=== PATIENT | male | born 1960 ===

== ENCOUNTER 2016-10-25 00:41 | Inpatient (IN) | payer BC ==
[2016-10-25 01:53] LABS: BASO # 0.1 K/uL (0.0-0.2); BASO % 0.6 % (0.0-2.0); EOS # 0.1 K/uL (0.0-0.7); EOS % 1.2 % (0.0-4.0); HEMATOCRIT 48.3 % (35.0-51.0); LYMPH # 2.7 K/uL (1.0-4.3); LYMPH % 30.2 % (20.0-40.0); MEAN CELL VOLUME 90.4 fL (80.0-94.0); MEAN CORPUSCULAR HEMOGLOBIN 30.3 pg (27.0-31.0); MEAN CORPUSCULAR HGB CONC 33.5 g/dL (33.0-37.0); MEAN PLATELET VOLUME 7.8 fL (7.2-11.7); MONO # 0.6 K/uL (0.0-0.8); RED CELL DISTRIBUTION WIDTH 15.8 % (11.5-14.5); WHITE BLOOD COUNT 8.9 K/uL (4.8-10.8)
[2016-10-25 01:57] LABS: CHLORIDE 98 mmol/L (98-107); POTASSIUM 3.8 mmol/L (3.6-5.2); SODIUM 139 mmol/L (132-148)
[2016-10-25 01:59] LABS: ALB/GLOB RATIO 1.1 (1.0-2.1); ALKALINE PHOSPHATASE 98 U/L (38-126); AST/SGOT 57 U/L (17-59); BILIRUBIN,TOTAL 0.4 mg/dL (0.2-1.3); CARBON DIOXIDE 24 mmol/L (22-30); GFR AFRICAN-AMERICAN > 60; TOTAL PROTEIN 8.3 g/dL (6.3-8.3)
[2016-10-25 02:00] LABS: ALT/SGPT 60 U/L (21-72); BLOOD UREA NITROGEN 6 mg/dL (9-20); CALCIUM 8.6 mg/dl (8.6-10.4); GLUCOSE,RANDOM 104 mg/dL (75-110)
--- NOTE | 2016-10-25 02:05 | C.PDOC ---
History Of Present Illness <TateCarola Akil - Last Filed: 10/25/16 10:13> <Yuri Ware - Last Filed: 10/25/16 21:22> 56 year old patient presents to the ED requesting detox. Patient wants to detox from alcohol. He admits to drinking alcohol prior to arrival. Patient denies suicidal/homicidal ideation or any other complaints at this time. (Yuri Ware) <Tate,Carola Akil - Last Filed: 10/25/16 10:13> History Per: Patient History/Exam Limitations: intoxication Onset/Duration Of Symptoms: Other Current Symptoms Are (Timing): Still Present Suicide/Self Injury Attempted (Context): None Modifying Factor(s): Alcohol Severity: None Pain Scale Rating Of: 0 Recent travel outside of the [place]: No <Yuri Ware - Last Filed: 10/25/16 21:22> Time Seen by Provider: 10/25/16 01:22 Chief Complaint (Nursing): Substance Abuse Past Medical History Reviewed: Historical Data, Nursing Documentation, Vital Signs Family History: States: Unknown Family Hx - Social History Hx Alcohol Use: Yes Hx Substance Use: Yes - Immunization History Hx Tetanus Toxoid Vaccination: No Hx Influenza Vaccination: No Hx Pneumococcal Vaccination: No <Yuri Ware - Last Filed: 10/25/16 21:22> Vital Signs: Last Vital Signs Temp 98 F 10/25/16 19:59 Pulse 97 H 10/25/16 19:59 Resp 18 10/25/16 19:59 BP 127/85 10/25/16 19:59 Pulse Ox 98 10/25/16 19:59 - [facility] Procedures TETANUS TOXOID ADMINIST (04/30/15) Review Of Systems Except As Marked, All Systems Reviewed And Found Negative. Constitutional: Negative for: Fever Cardiovascular: Negative for: Chest Pain Gastrointestinal: Negative for: Vomiting Psych: Negative for: Suicidal ideation <Yuri Ware - Last Filed: 10/25/16 21:22> Physical Exam - Physical Exam Appears: Non-toxic, No Acute Distress, Other (EtOH on breath) Skin: Warm, Dry Head: Atraumatic, Normacephalic Neck: Normal ROM, Supple Chest: Symmetrical Cardiovascular: Rhythm Regular Respiratory: No Accessory Muscle Use Gastrointestinal/Abdominal: Soft, No Tenderness Back: Normal Inspection, No CVA Tenderness Extremity: Normal ROM Neurological/Psych: Oriented x3 Gait: Steady <Yuri Ware - Last Filed: 10/25/16 21:22> ED Course And Treatment - Laboratory Results Result Diagrams: 10/25/16 01:45 10/25/16 01:45 <Carola Ybarra - Last Filed: 10/25/16 10:13> - Laboratory Results Result Diagrams: 10/25/16 01:45 10/25/16 01:45 O2 Sat by Pulse Oximetry: 96 (RA) Pulse Ox Interpretation: Normal <Yuri Ware - Last Filed: 10/25/16 21:22> Medical Decision Making <Carola Ybarra - Last Filed: 10/25/16 10:13> <Yuri Ware - Last Filed: 10/25/16 21:22> Medical Decision Making: Plan: -Labs 400: pt pending sobriety prior to crisis eval 500: pt later c/o of epigastric abd pain. lipase added. neg. 700: pt endorsed to day shift, pending sobriety prior to crisis eval for detox. (Yuri Ware) Disposition <Carola Ybarra - Last Filed: 10/25/16 10:13> - Disposition Disposition Time: 07:00 <Yuri Ware - Last Filed: 10/25/16 21:22> - Disposition Disposition: HOME/ ROUTINE Condition: GOOD - Clinical Impression Clinical Impression: Alcohol abuse <Carola Ybarra - Last Filed: 10/25/16 10:13> - Scribe Statement The provider has reviewed the documentation as recorded by the Scribe <Yuri Ware - Last Filed: 10/25/16 21:22> - Scribe Statement Josselyn Vázquez (Yuri Ware) Provider Attestation: All medical record entries made by the Scribe were at my direction and personally dictated by me. I have reviewed the chart and agree that the record accurately reflects my personal performance of the history, physical exam, medical decision making, and the department course for this patient. I have also personally directed, reviewed, and agree with the discharge instructions and disposition. (Yuri Ware) Addendum <Carola Ybarra - Last Filed: 10/25/16 10:13> <Yuri Ware - Last Filed: 10/25/16 21:22> Addendum: 10/25/16 07:15 Patient sleeping comfortably, easily arousable. He is pending sobriety for crisis eval/admission. 10/25/16 08:45 Patient awake, states he is having epigastric abdominal pain, nausea. Ordered PO zofran, maalox and EKG. Patient pending sobriety, for detox bed. 10/25/16 10:13 Patient resting comfortably. He is medically cleared, has been accepted for alcohol detox admission by Dr. Chang. (Carola Ybarra)
[2016-10-25 02:25] LABS: URINE BILIRUBIN NEGATIVE (NEGATIVE); URINE COLOR Colorless (YELLOW); URINE GLUCOSE (UA) NORMAL (Normal); URINE KETONE NEGATIVE (NEGATIVE); URINE LEUKOCYTE ESTERASE NEG Leu/uL (Negative); URINE PROTEIN NEGATIVE (NEGATIVE); URINE UROBILINOGEN NORMAL mg/dL (0.2-1.0); WBC URINE < 1 /hpf (0-5)
[2016-10-25 02:51] LABS: ALCOHOL SERUM 341 mg/dl (0-10)
[2016-10-25 02:54] LABS: URINE BLOOD TRACE (NEGATIVE)
[2016-10-25] MEDS ORDERED: Alum-Mag Hydrox-Simethicone Susp (30 mL) PO STA (08:47)
[2016-10-25] MEDS ORDERED: Alum-Mag Hydrox-Simethicone Susp (30 mL) ONE (09:03)
[2016-10-25 10:29] VITALS: RESP 18
[2016-10-26] MEDS: Multiple Vitamins Tab PO SCH (09:05)
--- NOTE | 2016-10-26 12:06 | CARD ---
APPROVED REPORT EKG Measurement Heart [id number] MD [id number] <Conclusion> Normal sinus rhythm Normal ECG
--- NOTE | 2016-10-26 17:52 | PCM.PSYCH ---
Initial Psychiatric Evaluation - Initial Psychiatric Evaluation Type of Admission: Voluntary Legal Status: Capacity Chief Complaint (in patient's own words): Improvement with treatment for my alcohol use History of Present Illness and Precipitating Events: Patient is a 56 years old, , employed, male with history of alcohol and cocaine use was admitted for the treatment of alcohol withdrawal. Patient denied any psychiatric history. Reported he started drinking alcohol at 8 years of age, increased gradually. After age 20 years, he started drinking heavily. Was drinking up to 10 cans of beer, age of 24 ounces, daily. His last used of alcohol was 2 days ago. His longest period of abstinence was 9 months from September 2015 -September 2016. He relapsed on alcohol in September 2016 due to his mother's sickness. History of 2 detox and 2 rehabs in the past. Reported he was attending AA meetings in the past but had no sponsor. Cannabis: Started at 8 years of age. Increased gradually. Reported he was smoking half owns daily. Last used 2 days ago. Smokes one pack of cigarettes daily and is requesting for nicotine patch. Patient was born in [place], has high school graduation and is working. He is and has one grown up daughter. He lives with his . His height is 6 feet and weight is 260 pounds. Current Medications: Active Medications Generic Name Dose Route Start Last Admin Trade Name Ildefonsoq PRN Reason Stop Dose Admin Chlordiazepoxide 25 mg 10/25/16 11:10 10/26/16 09:05 Librium PO 25 mg Q4H PRN Administration Alcohol Withdrawal Chlordiazepoxide 25 mg 10/25/16 12:00 10/26/16 13:30 Librium PO 10/29/16 11:59 25 mg TID PATRICA Administration Taper Clonidine HCl 0.1 mg 10/25/16 11:10 10/25/16 16:35 Catapres PO 0.1 mg Q4H PRN Administration Symptoms of alcohol withdrawl Folic Acid 1 mg 10/26/16 10:00 10/26/16 09:05 Folic Acid PO 1 mg DAILY PATRICA Administration Multivitamins 1 tab 10/26/16 10:00 10/26/16 09:05 Hexavitamin PO 1 tab DAILY PATRICA Administration Nicotine 1 patch 10/25/16 12:30 10/26/16 09:04 Nicoderm Cq TD 1 patch DAILY PATRICA Administration Thiamine HCl 100 mg 10/26/16 10:00 10/26/16 09:05 Vitamin B1 Tab PO 100 mg DAILY PATRICA Administration Trazodone HCl 50 mg 10/25/16 11:10 10/25/16 21:13 Desyrel PO 50 mg HS PRN Administration Insomnia Past Psychiatric History - Past Psychiatric History Previous Treatment History: Inpatient Prior Professional Help: History of 2 previous detox and 2 rehabs History of Abuse: None reported History of ETOH/Drug Use: See HPI History of Family Illness: Reported history of alcohol use in his father Pertinent Medical Hx (Current Medical&Sleep Prob, Allergies): Allergies Allergy/AdvReac Type Severity Reaction Status Date / Time No Known Allergies Allergy Verified 10/25/16 00:58 Ezetimibe/Simvastatin [Vytorin 10 mg-20 mg] 1 tab PO DAILY 10/25/16 Review of Systems - Psychiatric Psychiatric: Depression Mental Status Examination - Personal Presentation Personal Presentation: Looks stated age - Affect Affect: Depressed - Motor Activity Motor Activity: Calm - Reliability in Providing Information Reliability in Providing Information: Fair - Speech Speech: Organized - Mood Mood: Depressed - Formal Thought Process Formal Thought Process: No Impairment - Hallucinations/Delusions Hallucinations: Other (None reported) Delusions: Other - Obsessions/Compulsions Obsessions: None Compulsions: None - Cognitive Functions Orientation: Person, Place, Situation, Time Sensorium: Alert Attention/Concentration: Attentive Abstract Thinking: [place] Estimate of Intelligence: Average Judgement: Intact, as evidence by: Insight regarding need for hospitalization Memory: Recent intact, as evidence by: 3/3 object recall, Remote intact, as evidenced by: Ability to recall historical events - Risk Risk: Withdrawal, Diminished functioning - Strength & Assets Inventory Strength & Assets Inventory: Family support, Employment history, Cooperative - Limitations Limitations: Other DSM 5 DX - DSM 5 DSM 5 Diagnosis: Alcohol use disorder severe Cannabis use disorder severe - Recommended/Plan of Treatment Treatment Recommendations and Plan of Treatment: Patient education Supportive therapy [place] intervention Will start Librium for alcohol withdrawal symptoms Other when necessary medications Nicotine patch Projected ELOS: 4-5 days - Smoking Cessation Smoking Cessation Initiated: Yes
[2016-10-27] MEDS: Multiple Vitamins Tab PO SCH (09:07)
--- NOTE | 2016-10-27 12:55 | PCM.PYCHPN ---
Psychiatric Progress Note - Psychiatric Progress Note Patient seen today, length of contact: 15 minutes Patient Chief Complaint: Today I'm feeling much better Problems Identified/Issues Discussed: Patient seen. Chart reviewed. Case discussed with the staff. Issues related to illness and treatment were discussed with the patient. Patient reported compliant with treatment with no adverse affects. Tolerating treatment very well. Reported feeling much better. Very mild withdrawal symptoms. At the time of evaluation, patient was awake alert oriented 3, had no delusions, no auditory or visual hallucinations, no suicidal ideations or homicidal ideations. Medical Problems: None reported Diagnostic Results: Reviewed DSM 5 Symptoms Update: Improving with treatment Medication Change: No Medical Record Reviewed: Yes Mental Status Examination - Cognitive Function Orientation: Person, Place, Situation, Time Memory: Intact Attention: WNL Concentration: WNL Association: WNL Fund of Knowledge: [facility] Decription of patient's judgement and insights: Fair - Mood Mood: Depressed (Less than before) - Affect Affect: Depressed - Speech Speech: Appropriate - Formal Thought Process Formal Thought Process: No Impairment Psychotic Thoughts and Behaviors: None - Suicidal Ideation Suicidal Ideation: No - Homicidal Ideation Homicidal Ideation: No Goal/Treatment Plan - Goal/Treatment Plan Need for Continued Stay: Remain at risks for inpatient hospitalization, Discharge may exacerbated symptoms, Severe functional impairment Progress Toward Problem(s) and Goals/Treatment Plan: Patient education Supportive therapy [place] intervention Will continue Librium for alcohol withdrawal symptoms Other when necessary medications Nicotine patch Wants to attend AA meetings after discharge from the hospital Estimated Date of D/C: 10/28/16 - Smoking Cessation Smoking Cessation Initiated: Yes
[2016-10-28] MEDS: Multiple Vitamins Tab PO SCH (09:39)
[2016-10-28 10:33] VITALS: BP 119/80; PULSE 87; TEMP 97.4; O2SAT 98
--- NOTE | 2016-10-28 12:16 | PCM.PYCHDC ---
Mental Status Examination - Mental Status Examination Orientation: Person, Place, Situation, Time Memory: Intact Mood: Neutral Affect: Other (Appropriate) Speech: Appropriate Attention: WNL Concentration: WNL Association: WNL Fund of Knowledge: WNL Formal Thought Process: No Impairment Description of patient's judgement and insight: Fair Psychotic Thoughts and Behaviors: None Suicidal Ideation: No Current Homicidal Ideation?: No Discharge Summary - Discharge Note Reason for Hospitalization: Alcohol use and withdrawal Psychiatric History (includes Medical, Family, Personal Hx): Alcohol use disorder Laboratory Data: Reviewed Consultations:: List each consultation separately and include: 1. Reason for request. 2. Findings. 3. Follow-up Summary of Hospital Course include:: 1. Description of specific treatment plan utilized for patients during their course of treatmen. 2. Summarize the time- course for resolution of acute symptoms and/or regressed behaviors. 3. Describe issues identified and worked on during hospitalization. 4. Describe medication utilized. 5. Describe medical problems identified and treated. 6. Reassessment of suicide risk Summary of Hospital Course: Patient is a 56 years old, , employed, male with history of alcohol and cocaine use was admitted for the treatment of alcohol withdrawal. Patient denied any psychiatric history. Reported he started drinking alcohol at 8 years of age, increased gradually. After age 20 years, he started drinking heavily. Was drinking up to 10 cans of beer, age of 24 ounces, daily. His last used of alcohol was 2 days ago. His longest period of abstinence was 9 months from September 2015 -September 2016. He relapsed on alcohol in September 2016 due to his mother's sickness. History of 2 detox and 2 rehabs in the past. Reported he was attending AA meetings in the past but had no sponsor. Cannabis: Started at 8 years of age. Increased gradually. Reported he was smoking half owns daily. Last used 2 days ago. Smokes one pack of cigarettes daily and is requesting for nicotine patch. Patient was born in [place], has high school graduation and is working. He is and has one grown up daughter. He lives with his . His height is 6 feet and weight is 260 pounds. During his stay in the hospital patient was treated for alcohol withdrawal symptoms with Librium detox protocol and other when necessary medications. With this treatment patient started feeling much better with no withdrawal symptoms. Patient tolerated treatment very well, he was compliant with treatment with no adverse affects. Today patient was stable and ready for discharge. At the time of evaluation and discharge, patient was awake alert oriented 3, had no delusions, no auditory or visual hallucinations, no suicidal ideations or homicidal ideations. - Final Diagnosis (DSM 5) Condition upon Discharge: GOOD Disposition: HOME/ ROUTINE Follow-up Treatment Plan: Wants to attend AA meetings after discharge from the hospital Prescriptions/Medication Reconciliation: traZODone [Desyrel] 100 mg PO HS PRN #30 tab PRN Reason: Insomnia - Smoking Cessation Smoking Cessation Medication prescribed: Yes - Antipsychotic Medications Pt discharged on 2 or more routine antipsychotic medications: No
== END 2016-10-28 14:15 | disposition home or self-care (01) | DRG 897 ==
LOC: C.ER 00:41 → C.9OBSV 07:05 → OBSVTOIN 10:09 → C.7D 10:09
DX: F10.239 Alcohol dependence with withdrawal, unspecified (principal); F14.90 Cocaine use, unspecified, uncomplicated; F12.90 Cannabis use, unspecified, uncomplicated; F17.210 Nicotine dependence, cigarettes, uncomplicated

== ENCOUNTER 2018-07-06 16:22 | Emergency (ER) | payer BC ==
[2018-07-06 16:39] VITALS: BMI 36.6
[2018-07-06 16:40] VITALS: BP 118/78; PULSE 76; RESP 19; TEMP 97.7; O2SAT 96
[2018-07-06] MEDS ORDERED: Lidocaine 2% MPF (5 ml) Inj ONE (17:08)
--- NOTE | 2018-07-06 17:37 | C.PDOC ---
History Of Present Illness 58 year old male presents to the ED for evaluation of a swollen and painful abscess which developed above his left ear over the past 4 days. Patient reports he has been applying Neosporin to the area without relief. He was evaluated at his PMD's office, and referred to the ED for further evaluation. Patient denies fever, chills. Time Seen by Provider: 07/06/18 17:01 Chief Complaint (Nursing): Abnormal Skin Integrity History Per: Patient History/Exam Limitations: no limitations Onset/Duration Of Symptoms: Days (4) Current Symptoms Are (Timing): Still Present Quality Of Symptoms: Painful, Swollen Additional History Per: Patient Past Medical History Reviewed: Historical Data, Nursing Documentation, Vital Signs Vital Signs: Last Vital Signs Temp 97.7 F 07/06/18 16:39 Pulse 76 07/06/18 16:39 Resp 19 07/06/18 16:39 BP 118/78 07/06/18 16:39 Pulse Ox 96 07/06/18 16:39 - Medical History PMH: No Chronic Diseases Denies: Diabetes, Hepatitis, HIV, HTN, Seizures, Sexually Transmitted Disease Surgical History: No Surg Hx - [facility] Procedures TETANUS TOXOID ADMINIST (04/30/15) Family History: States: Unknown Family Hx - Social History Hx Alcohol Use: Yes Hx Substance Use: Yes - Immunization History Hx Tetanus Toxoid Vaccination: No Hx Influenza Vaccination: No Hx Pneumococcal Vaccination: No Review Of Systems Constitutional: Negative for: Fever, Chills Skin: Positive for: Other (swollen and painful abscess above left ear ) Physical Exam - Physical Exam Appears: Non-toxic, No Acute Distress Skin: Normal Color, Warm, Dry, Other (2cm erythematous, tender and fluctuant a bscess above left ear ) Head: Atraumatic, Normacephalic Eye(s): bilateral: Normal Inspection, PERRL, EOMI Ear(s): Left: Other (normal external ear ), Right: Normal Oral Mucosa: Moist Throat: No Erythema, No Exudate Neck: Normal ROM, Supple Lymphatic: Normal Exam Chest: Symmetrical Extremity: Normal ROM, No Swelling Neurological/Psych: Normal Speech, Normal Cognition Gait: Steady ED Course And Treatment O2 Sat by Pulse Oximetry: 96 (on RA) Pulse Ox Interpretation: Normal - Incision & Drainage Of Abscess Anesthesia: Lidocaine 2% Prep Used: Sterile Water, Betadine Procedure: Incised W/Scalpel Blade#: (11), Drained Pus, Irrigated Cavity W/Saline, Probed To Break Up Loculations, Packed W/Gauze, Cultures Obtained And Sent To Lab Medical Decision Making Medical Decision Making: Abscess was incised and drained. Clindamycin PO given. Disposition - Disposition Referrals: [facility] [Outside] Disposition: HOME/ ROUTINE Disposition Time: 17:37 Condition: STABLE Additional Instructions: Come back to the ED in 2 days for wound check and packing removal. Take antibiotics until completed. Prescriptions: Clindamycin [Cleocin] 300 mg PO TID #30 cap Instructions: Skin Abscess Forms: [email or web address] Connect (Armenian) - Clinical Impression Clinical Impression: Abscess - PA / RN HYPERBARIC / Resident Statement MD/DO has reviewed & agrees with the documentation as recorded. - Scribe Statement The provider has reviewed the documentation as recorded by the Scribe (Linda Vázquez) All medical record entries made by the Scribe were at my direction and personally dictated by me. I have reviewed the chart and agree that the record accurately reflects my personal performance of the history, physical exam, medical decision making, and the department course for this patient. I have also personally directed, reviewed, and agree with the discharge instructions and disposition.
== END 2018-07-06 18:03 | disposition home or self-care (01) ==
LOC: C.ER 16:22
DX: H60.02 Abscess of left external ear (principal)

== ENCOUNTER 2018-07-08 12:20 | Emergency (ER) | payer BC ==
[2018-07-08 12:25] VITALS: BMI 34.7
[2018-07-08 12:27] VITALS: BP 138/78; PULSE 79; RESP 18; TEMP 97.6; O2SAT 97
--- NOTE | 2018-07-08 12:47 | C.PDOC ---
Chief Complaint (Nursing): Wound Check Past Medical History Vital Signs: Last Vital Signs Temp 97.6 F 07/08/18 12:25 Pulse 79 07/08/18 12:25 Resp 18 07/08/18 12:25 BP 138/78 07/08/18 12:25 Pulse Ox 97 07/08/18 12:25 - Medical History PMH: Denies: Diabetes, Hepatitis, HIV, HTN, Seizures, Sexually Transmitted Disease - [facility] Procedures TETANUS TOXOID ADMINIST (04/30/15) Family History: States: Unknown Family Hx - Social History Hx Alcohol Use: Yes Hx Substance Use: Yes - Immunization History Hx Tetanus Toxoid Vaccination: No Hx Influenza Vaccination: Yes Hx Pneumococcal Vaccination: No ED Course And Treatment O2 Sat by Pulse Oximetry: 97 Disposition - Disposition Forms: [employer] (Somali)
--- NOTE | 2018-07-08 12:48 | C.PDOC ---
History Of Present Illness 58 year old male presents to ED for a wound check. Patient complains of a left- sided face abscess that was checked on 07/06/18 where I&D procedure was done and wound was packed. Patient states he has not started his antibiotics because he is waiting to receive them by mail. Chief Complaint (Nursing): Wound Check History Per: Patient History/Exam Limitations: no limitations Onset/Duration Of Symptoms: Days Ago Current Symptoms Are (Timing): Still Present Past Medical History Reviewed: Historical Data, Nursing Documentation, Vital Signs Vital Signs: Last Vital Signs Temp 97.6 F 07/08/18 12:25 Pulse 79 07/08/18 12:25 Resp 18 07/08/18 12:25 BP 138/78 07/08/18 12:25 Pulse Ox 97 07/08/18 12:25 - Medical History PMH: Denies: Diabetes, Hepatitis, HIV, HTN, Seizures, Sexually Transmitted Disease Surgical History: No Surg Hx - [facility] Procedures TETANUS TOXOID ADMINIST (04/30/15) Family History: States: No Known Family Hx - Social History Hx Tobacco Use: No Hx Alcohol Use: Yes Hx Substance Use: Yes - Immunization History Hx Tetanus Toxoid Vaccination: No Hx Influenza Vaccination: Yes Hx Pneumococcal Vaccination: No Physical Exam - Physical Exam Appears: Non-toxic, No Acute Distress Skin: Warm, Dry, Other (Discharge from the wound, no erythema) Head: Atraumatic, Normacephalic Eye(s): bilateral: Normal Inspection Oral Mucosa: Moist Neck: Supple Cardiovascular: Rhythm Regular Respiratory: Normal Breath Sounds, No Rales, No Rhonchi, No Wheezing Gastrointestinal/Abdominal: Normal Exam Extremity: Bilateral: Normal Color And Temperature, Normal ROM Neurological/Psych: Oriented x3, Normal Speech Gait: Steady ED Course And Treatment O2 Sat by Pulse Oximetry: 97 (RA) Pulse Ox Interpretation: Normal Medical Decision Making Medical Decision Making: Plan: --Vytorin --Cleocin Wound was repacked. Disposition Counseled Patient/Family Regarding: Diagnosis, Need For Followup - Disposition Disposition Time: 12:47 Condition: STABLE Additional Instructions: Packing removal in 2 days Instructions: Wound Infection Forms: [email or web address] (Estonian), General Discharge Instructions - POA Present On Arrival: None Location Of Wound: L.face - Clinical Impression Clinical Impression: Infection of skin, Encounter for wound re-check - Scribe Statement The provider has reviewed the documentation as recorded by the Zach Christianson Provider Attestation: All medical record entries made by the Zach were at my direction and personally dictated by me. I have reviewed the chart and agree that the record accurately reflects my personal performance of the history, physical exam, medical decision making, and the department course for this patient. I have also personally directed, reviewed, and agree with the discharge instructions and disposition.
[2018-07-09] MEDS ORDERED: EZETIMIBE PO SCH (10:00)
[2018-07-09] MEDS ORDERED: SIMVASTATIN PO SCH (10:00)
== END 2018-07-08 13:08 | disposition home or self-care (01) ==
LOC: C.ER 12:20
DX: L08.9 Local infection of the skin and subcutaneous tissue, unspecified (principal)